=== PATIENT | female | born 1985 | race Caucasian/White ===

== ENCOUNTER 2022-06-29 16:06 | Emergency (ER) | payer SELFPAY ==
[~2022-06-29] VITALS: Ht 154.9 cm; Wt 61.2 kg
[2022-06-29 16:10] VITALS: BP 150/90
--- NOTE | 2022-06-29 16:23 | NUR ---
BIBA TO ROOM 7
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
[2022-06-29] MEDS ORDERED: MORPHINE SULFATE 4 MG/ML SYR IM ONE (16:35)
--- NOTE | 2022-06-29 16:38 | NUR ---
LAB AT BEDSIDE
[2022-06-29] MEDS ORDERED: MORPHINE SULFATE 4 MG/ML SYR ONE (16:39)
--- NOTE | 2022-06-29 16:51 | NUR ---
pt removed collar x2. and combative
[2022-06-29] MEDS ORDERED: LORazepam 2 MG/ML VIAL ONE (16:55)
--- NOTE | 2022-06-29 17:00 | NUR ---
VERBAL ORDER FOR HARD RESTRAINTS PER DR DUARTE FOR PT AND STAFF STAFETY.
--- NOTE | 2022-06-29 17:00 | NUR ---
PT SCREAMING, TAKING OFF C COLLAR. PT COMBATIVE, ATTEMPTNG TO SWING AND ATTACK NURSES. DR DUARTE AWARE. SECURITY AT BEDSIDE
[2022-06-29] MEDS ORDERED: HALOPERIDOL IM 5 MG/ML VIAL IM ONE (17:05)
[2022-06-29] MEDS ORDERED: diphenhydrAMINE 50 MG/ML VIAL IM ONE (17:05)
[2022-06-29] MEDS ORDERED: HALOPERIDOL IM 5 MG/ML VIAL ONE (17:05)
[2022-06-29] MEDS ORDERED: diphenhydrAMINE 50 MG/ML VIAL ONE (17:06)
[2022-06-29] MEDS ORDERED: LORazepam 2 MG/ML VIAL IM ONE (17:30)
--- NOTE | 2022-06-29 18:32 | NUR ---
PT BROUGHT BACK FROM CT VIA DAWN
[2022-06-29 19:04] LABS: BASOPHILS % (AUTO) 0.1 % (0.0-2.0); EOSINOPHILS % (AUTO) 0.2 % (0.0-4.0); HEMATOCRIT 43.4 % (36-48); HEMOGLOBIN 14.9 g/dL (12.0-16.0); LYMPHOCYTES # (AUTO) 1.5 K/uL (2.5-16.5); LYMPHOCYTES % (AUTO) 10.8 % (20.5-51.1); MEAN CORPUSCULAR HEMOGLOBIN 32 pg (27-31); MEAN CORPUSCULAR HGB CONC 34 g/dL (33-37); MEAN CORPUSCULAR VOLUME 92.5 fL (80-94); MONOCYTES # (AUTO) 0.8 K/uL (0.8-1.0); NEUTROPHILS # (AUTO) 11.3 K/uL (1.8-7.7); NEUTROPHILS % (AUTO) 82.9 % (42.2-75.2); PLATELET COUNT (AUTO) 310 K/uL (140-450); RED BLOOD CELL COUNT(AUTO) 4.69 MIL/uL (4.20-5.40); WHITE BLOOD COUNT (AUTO) 13.7 K/uL (4.8-10.8)
--- NOTE | 2022-06-29 19:15 | NUR ---
REPORT GIVEN TO LANA JAIN . TRANSFER OF CARE AT THIS TIME
[2022-06-29 19:19] LABS: ALBUMIN 3.5 g/dL (3.4-5.0); ANION GAP 19.1 (8-16); CARBON DIOXIDE 23.1 mmol/L (21-32); CREATININE 0.8 mg/dL (0.6-1.3); POTASSIUM 3.2 mmol/L (3.5-5.1); TOTAL BILIRUBIN 0.3 mg/dL (0.0-1.0)
[2022-06-29 19:46] LABS: APPEARANCE,URINE CLEAR (CLEAR); BILIRUBIN,URINE NEGATIVE (NEGATIVE); BLOOD, URINE 3+ (NEGATIVE); COLOR,URINE YELLOW (YELLOW); LEUKOCYTE ESTERASE ,URINE NEGATIVE (NEGATIVE); NITRITE, URINE NEGATIVE (NEGATIVE); PH,URINE 5.5 (5.0-9.0); UGLUCOSE NEGATIVE (NEGATIVE)
[2022-06-29 20:00] LABS: BARBITURATE, URINE NEGATIVE ng/ml (NEG <=200); BENZODIAZEPINE, URINE POSITIVE ng/mL (NEG <=200); CANNABINOID, URINE POSITIVE ng/mL (NEG <=50); COCAINE, URINE NEGATIVE ng/mL (NEG <=300); OPIATE, URINE NEGATIVE ng/mL (NEG <=2000); PHENCYCLIDINE SCREEN,URINE NEGATIVE ng/mL (NEG <=25)
[2022-06-29 20:04] LABS: YEAST,URINE None Seen /HPF (None Seen)
[2022-06-29 20:05] LABS: CALCIUM OXALATE CRYSTALS,UR None Seen /HPF (None Seen); RED BLOOD CELL CASTS,URINE 0-10 /LPF (None Seen); TRICHOMONAS,URINE None Seen /HPF (None Seen)
[2022-06-29 20:07] LABS: WBC,URINE 0-5 /HPF (0-5)
--- NOTE | 2022-06-29 20:17 | NUR ---
PT IS SLEEPING. ON BEDSIDE MONITOR.
--- NOTE | 2022-06-29 20:57 | NUR ---
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 PT IS A EOTH INTOX. IS A0X4. DOES NOT RECALL WHAT HAPPENED. PT IS ANSWERING ALL QUESTIONS APPROPIATELY. DENIES ANY PAIN. DENIES CP OR SOB . SMALL LACERATIONS TO TOP HEAD NO ACTIVE BLEEDING. NO ABD TENDERNESS. BED AT LOWEST POSITION. HOB ELEVATED. SIDE RAILS UP X2 NKDA NO HX
--- NOTE | 2022-06-29 21:25 | NUR ---
PT TAKEN TO CT VIA DAWN
--- NOTE | 2022-06-29 21:35 | NUR ---
PT. BROUGHT BACK TO ROOM.
[2022-06-29] MEDS ORDERED: NAPR-54 PO (23:09)
[2022-06-29 23:30] VITALS: BP 127/88
--- NOTE | 2022-06-29 23:30 | NUR ---
Patient discharged with v/s stable. Written and verbal after care instructions given and explained. Patient verbalized understanding. Ambulatory with steady gait. All questions addressed prior to discharge. Advised to follow up with PMD.
--- NOTE | 2022-06-29 23:42 | NUR ---
The patient's care was reviewed and supervised by Esme Chua RN.
== END 2022-06-29 23:30 | disposition home or self-care (01) ==
LOC: MED 16:06
DX: S13.4XXA Sprain of ligaments of cervical spine, initial encounter (principal); S09.90XA Unspecified injury of head, initial encounter; F10.129 Alcohol abuse with intoxication, unspecified; Y90.9 Presence of alcohol in blood, level not specified; V49.88XA Car occupant (driver) (passenger) injured in other specified transport accidents, initial encounter; Y93.89 Activity, other specified; Y92.89 Other specified places as the place of occurrence of the external cause; Y99.8 Other external cause status
CPT/HCPCS: 36415; 70450; 71045; 72125; 74177; 80053; 80305; 81001; 81025; 85025; 87086; 96372; 99285; G0482; J1200; J1630; J2060; Q0092; Q9967; J2270